=== PATIENT | male | born 1975 | race Hispanic/Latino ===

== ENCOUNTER 2017-05-03 10:52 | Emergency (ER) | payer BC, OTHER ==
[2017-05-03 10:58] VITALS: TEMP 98.2
[2017-05-03] MEDS ORDERED: Morphine 4 mg/ml ISec IVP STA (11:04)
--- NOTE | 2017-05-03 11:10 | ED PDOC ---
Arrival/HPI - General Chief Complaint: Male Genitourinary Time Seen by Provider: 05/03/17 10:53 Historian: Patient - History of Present Illness Narrative History of Present Illness (Text): 05/03/17 10:53 Aayush Melchor is a 42 year old male, whose past medical history includes testicular torsion, who presents to the emergency department complaining of right testicular pain that started 40 minutes ago. Patient confirms that there are no inciting factors. Patient denies any other complaint at this time. Time/Duration: 1/2 hour Symptom Onset: Gradual Symptom Course: Unchanged Severity Level: Moderate Activities at Onset: Rest Context: Home Past Medical History - Provider Review Nursing Documentation Reviewed: Yes - Cardiac Hx Hypertension: Yes - Pulmonary Hx Asthma: Yes - Neurological Hx Neurological Disorder: No - HEENT Hx HEENT Disorder: No - Renal Hx Renal Disorder: No - Endocrine/Metabolic Hx Endocrine Disorders: No - Hematological/Oncological Hx Blood Disorders: No - Integumentary Hx Dermatological Disorder: No - Musculoskeletal/Rheumatological Hx Musculoskeletal Disorders: No - Gastrointestinal Hx Gastrointestinal Disorders: No - Genitourinary/Gynecological Hx Genitourinary Disorders: Yes - Psychiatric Hx Anxiety: Yes Hx Substance Use: No - Surgical History Other/Comment: EPIDURAL R/T BACK PAIN, TESTICULAR R/T TORSION - Anesthesia Hx Anesthesia: No Family/Social History - Physician Review Nursing Documentation Reviewed: Yes Family/Social History: No Known Family HX Smoking Status: Heavy Smoker > 10 Cigarettes Daily Hx Alcohol Use: Yes Frequency of alcohol use: Socially Hx Substance Use: No Allergies/Home Meds Allergies/Adverse Reactions: Allergies No Known Allergies Allergy (Verified 05/03/17 10:54) Home Medications: Home Meds Medication Instructions Recorded Confirmed Escitalopram [Lexapro] 20 mg PO DAILY 05/03/17 05/03/17 Valsartan/Hydrochlorothiazide 1 tab PO DAILY 05/03/17 05/03/17 [Diovan Hct 320-25 mg Tablet] amLODIPine [Norvasc] 5 mg PO DAILY 05/03/17 05/03/17 Review of Systems - Review of Systems Constitutional: absent: Fevers, Night Sweats Eyes: absent: Vision Changes ENT: absent: Hearing Changes Respiratory: absent: SOB, Cough Cardiovascular: absent: Chest Pain Gastrointestinal: absent: Abdominal Pain Genitourinary Male: Other (Right testicular pain) Musculoskeletal: absent: Arthralgias Skin: absent: Rash Neurological: absent: Headache, Dizziness Endocrine: absent: Diaphoresis Hemo/Lymphatic: absent: Adenopathy Psychiatric: absent: Anxiety Physical Exam Vital Signs Reviewed: Yes Vital Signs Temp Pulse Resp BP Pulse Ox 05/03/17 13:00 89 18 128/69 100 05/03/17 11:50 91 H 18 131/71 100 05/03/17 10:55 98.2 F 99 H 16 133/76 95 Temperature: Afebrile Blood Pressure: Normal Pulse: Tachycardic Respiratory Rate: Normal Appearance: Positive for: Well-Appearing, Non-Toxic, Comfortable Pain Distress: None Mental Status: Positive for: Alert and Oriented X 3 - Systems Exam Head: Present: Atraumatic, Normocephalic Pupils: Present: PERRL Extroacular Muscles: Present: EOMI Conjunctiva: Present: Normal Mouth: Present: Moist Mucous Membranes Neck: Present: Normal Range of Motion Respiratory/Chest: Present: Clear to Auscultation, Good Air Exchange. No: Respiratory Distress, Accessory Muscle Use Cardiovascular: Present: Regular Rate and Rhythm, Normal S1, S2. No: Murmurs Abdomen: Present: Normal Bowel Sounds. No: Tenderness, Distention, Peritoneal Signs Genitourinary Male: Present: Testicle Tenderness (Right-sided testicular tenderness) Back: Present: Normal Inspection Upper Extremity: Present: Normal Inspection. No: Cyanosis, Edema Lower Extremity: Present: Normal Inspection. No: Edema Neurological: Present: GCS=15, CN II-XII Intact, Speech Normal Skin: Present: Warm, Dry, Normal Color. No: Rashes Psychiatric: Present: Alert, Oriented x 3, Normal Insight, Normal Concentration Medical Decision Making ED Course and Treatment: 05/03/17 10:55 Impression: 42 year old male complaining of right testicular pain that began 40 minutes ago. Differential Diagnosis include but are not limited to: Plan: -- Testes Ultrasound -- Urinalysis -- Labs -- Morphine -- Reassess and disposition Progress Notes: 05/03/17 13:58 tech reports b/l hydrocele. no e/o of torsion/epididymitits. case discussed with dr murphy (as pt called dr murphy on cell phone). reports can f/u friday with his group/. 05/03/17 16:12 - Lab Interpretations Lab Results: 05/03/17 11:00 05/03/17 11:00 Lab Results 05/03/17 12:30: Urine Color Yellow, Urine Appearance Clear, Urine pH 6.0, Ur Specific [place] >= 1.030, Urine Protein Negative, Urine Glucose (UA) Negative, Urine Ketones Negative, Urine Blood Negative, Urine Nitrate Negative, Urine Bilirubin Negative, Urine Urobilinogen 0.2, Ur Leukocyte Esterase Negative 05/03/17 11:00: Sodium 139, Potassium 3.6, Chloride 103, Carbon Dioxide 27, Anion Gap 13, BUN 17, Creatinine 0.8, Est GFR ( Amer) > 60, Est GFR (Non- Af Amer) > 60, Random Glucose 109, Calcium 9.5, Total Bilirubin 0.6, AST 26, ALT 43, Alkaline Phosphatase 81, Total Protein 7.5, Albumin 4.2, Globulin 3.3, Albumin/Globulin Ratio 1.3 05/03/17 11:00: PT 10.4, INR 0.96, APTT 26.7 05/03/17 11:00: WBC 9.7, RBC 5.55, Hgb 17.6, Hct 49.3, MCV 88.8, MCH 31.7, MCHC 35.7, RDW 13.2, Plt Count 192, MPV 11.0, Gran % 58.7, Lymph % (Auto) 28.7, [place] % (Auto) 7.8 H, Eos % (Auto) 4.6, Baso % (Auto) 0.2, Gran # 5.68, Lymph # 2.8, [place] # 0.8 H, Eos # 0.5, Baso # 0.02 I have reviewed the lab results: Yes - RAD Interpretation Radiology Orders: 05/03/17 11:04 TESTES DUPLEX COMPLETE [US] Stat - Medication Orders Current Medication Orders: Discontinued Medications Hydromorphone HCl (Dilaudid) 0.5 mg IVP STAT STA Stop: 05/03/17 12:09 Last Admin: 05/03/17 12:18 Dose: 0.5 mg Sodium Chloride (Sodium Chloride 0.9%) 1,000 mls @ 999 mls/hr IV .Q1H1M STA Stop: 05/03/17 13:15 Last Admin: 05/03/17 12:19 Dose: 999 mls/hr Ketorolac Tromethamine (Toradol) 30 mg IVP STAT STA Stop: 05/03/17 13:57 Last Admin: 05/03/17 14:11 Dose: 30 mg Morphine Sulfate (Morphine) 4 mg IVP STAT STA Stop: 05/03/17 11:05 Last Admin: 05/03/17 11:18 Dose: 4 mg - Scribe Statement The provider has reviewed the documentation as recorded by the Scribe Ana Jha Provider Scribe Attestation: All medical record entries made by the Scribe were at my direction and personally dictated by me. I have reviewed the chart and agree that the record accurately reflects my personal performance of the history, physical exam, medical decision making, and the department course for this patient. I have also personally directed, reviewed, and agree with the discharge instructions and disposition. Disposition/Present on Arrival - Present on Arrival Any Indicators Present on Arrival: No History of DVT/PE: No History of Uncontrolled Diabetes: No Urinary Catheter: No History of Decub. Ulcer: No History Surgical Site Infection Following: None - Disposition Have Diagnosis and Disposition been Completed?: Yes Diagnosis: Testicular pain, Hydrocele Disposition: HOME/ ROUTINE Disposition Time: 12:55 Condition: STABLE Discharge Instructions (ExitCare): Hydrocele (ED), Testicle Pain (ED) Additional Instructions: please follow up with specialist. return toer with worsening symptoms or concerns. Prescriptions: Ciprofloxacin [Cipro] 500 mg PO BID #14 tab Ibuprofen [Motrin Tab] 600 mg PO Q8 PRN #20 tab PRN Reason: Pain, Mild (1-3) Referrals: Mary Kate Lake [Primary Care Provider] - Follow up with primary Kennedy Murphy MD [Staff Provider] - Follow up with primary
[2017-05-03 11:26] LABS: ADD MANUAL DIFF? NO
[2017-05-03 11:36] LABS: BASO # 0.02 K/mm3 (0.0-2.0); BASO % 0.2 % (0.0-3.0); EOS # 0.5 (0.0-0.7); EOS % 4.6 % (1.5-5.0); GRAN # 5.68 (1.4-6.5); GRAN % 58.7 % (50.0-68.0); HEMATOCRIT 49.3 % (42.0-52.0); LYMPH # 2.8 (1.2-3.4); LYMPH % 28.7 % (22.0-35.0); MEAN CELL VOLUME 88.8 fL (80.0-105.0); MEAN CORPUSCULAR HEMOGLOBIN 31.7 pg (25.0-35.0); MEAN CORPUSCULAR HGB CONC 35.7 g/dl (31.0-37.0); MONO # 0.8 (0.1-0.6); MONO % 7.8 % (1.0-6.0); PLATELET COUNT 192 10^3/uL (120.0-450.0); RED CELL DISTRIBUTION WIDTH 13.2 % (11.5-14.5); WHITE BLOOD COUNT 9.7 10^3/ul (4.5-11.0)
[2017-05-03 11:40] LABS: ALB/GLOB RATIO 1.3 (1.1-1.8); ALKALINE PHOSPHATASE 81 U/L (38-133); ALT/SGPT 43 U/L (7-56); AST/SGOT 26 U/L (15-59); BILIRUBIN,TOTAL 0.6 mg/dL (0.2-1.3); BLOOD UREA NITROGEN 17 mg/dL (7-21); CALCIUM 9.5 mg/dL (8.4-10.5); CARBON DIOXIDE 27 mmol/L (21-33); CHLORIDE 103 mmol/L (98-107); GFR AFRICAN-AMERICAN > 60; GLUCOSE,RANDOM 109 mg/dL (70-110); POTASSIUM 3.6 mmol/L (3.6-5.0); SODIUM 139 mmol/L (132-148); TOTAL PROTEIN 7.5 g/dL (5.8-8.3)
[2017-05-03 11:42] LABS: INR 0.96 (0.93-1.08); PARTIAL THROMBOPLASTIN TIME 26.7 Seconds (23.7-30.8)
[2017-05-03 11:51] VITALS: RESP 18; O2SAT 100
[2017-05-03] MEDS ORDERED: HYDROmorphone 0.5 mg/0.5 ml ISec IVP STA (12:08)
[2017-05-03] MEDS ORDERED: Sodium Chloride 0.9% 1,000 ML IV STA (12:15)
[2017-05-03 12:48] LABS: URINE BILIRUBIN NEGATIVE (NEGATIVE); URINE BLOOD NEGATIVE (NEGATIVE); URINE GLUCOSE (UA) NEGATIVE (NEGATIVE); URINE KETONE NEGATIVE (NEGATIVE); URINE LEUKOCYTE ESTERASE NEGATIVE Leu/uL (NEGATIVE); URINE PROTEIN NEGATIVE mg/dL (<30 mg/dL); URINE UROBILINOGEN 0.2 E.U./dL (<1 E.U./dL)
[2017-05-03 12:49] LABS: URINE APPEARANCE CLEAR (CLEAR); URINE COLOR YELLOW (YELLOW)
[2017-05-03 13:12] VITALS: BP 128/69; PULSE 89
--- NOTE | 2017-05-03 16:36 | US ---
HISTORY: testicular pain TECHNIQUE: Realtime sonography through the scrotum with color and doppler flow. COMPARISON: None Available. FINDINGS: RIGHT TESTICLE: Measures 4.69 x 2.83 x 2.85 cm. Normal echotexture and flow. RIGHT EPIDIDYMIS: Epididymal head measures 1.54 x 0.96 x 1.0 cm. Grossly unremarkable appearance with normal flow. LEFT TESTICLE: Measures 4.55 x 2.02 cm. Normal echotexture and flow. LEFT EPIDIDYMIS: Epididymal head measures 1.17 x 0.76 cm. Grossly unremarkable appearance with normal flow. HYDROCELE: Small hydroceles bilaterally VARICOCELE: None. OTHER FINDINGS: None. IMPRESSION: No evidence of torsion
== END 2017-05-03 14:25 | disposition home or self-care (01) ==
LOC: ED 10:52
DX: N43.3 Hydrocele, unspecified (principal); N50.811 Right testicular pain
CPT/HCPCS: 80053; 81003; 85025; 85610; 85730; 87491; 87591; 93975; 96361; 96374; 96375; 99282; J1170; J1885; J2270; J7040

== ENCOUNTER 2018-04-29 03:27 | Emergency (ER) | payer OTHER, BC ==
[2018-04-29 03:35] VITALS: BMI 34.4
[2018-04-29 03:41] VITALS: TEMP 97.1
--- NOTE | 2018-04-29 04:31 | ED PDOC ---
Arrival/HPI - General Chief Complaint: Back Pain Time Seen by Provider: 04/29/18 03:41 Historian: Patient - History of Present Illness Narrative History of Present Illness (Text): 04/29/18 03:40 Aayush Melchor Jr is a 43 year old male who presents to the Emergency department complaining of back pain. Patient works as a patient support associate and was working at a [employer] prior to arrival. Patient states he was wearing full protective gear including a heavy oxygen gas tank. Patient denies any chest pain , shortness of breath, abdominal pain, vomiting, neck pain, headache, dizziness , or any other complaints. Time/Duration: Prior to Arrival Symptom Onset: Gradual Symptom Course: Unchanged Activities at Onset: Significant (Exertion) Context: Work Past Medical History - Provider Review Nursing Documentation Reviewed: Yes - Cardiac Hx Hypertension: Yes - Pulmonary Hx Asthma: Yes - Neurological Hx Neurological Disorder: No - HEENT Hx HEENT Disorder: No - Renal Hx Renal Disorder: No - Endocrine/Metabolic Hx Endocrine Disorders: No - Hematological/Oncological Hx Blood Disorders: No - Integumentary Hx Dermatological Disorder: No - Musculoskeletal/Rheumatological Hx Musculoskeletal Disorders: No Other/Comment: neck and back fusion - Gastrointestinal Hx Gastrointestinal Disorders: No - Genitourinary/Gynecological Hx Genitourinary Disorders: Yes - Psychiatric Hx Anxiety: Yes Hx Substance Use: No - Surgical History Other/Comment: EPIDURAL R/T BACK PAIN, TESTICULAR R/T TORSION - Anesthesia Hx Anesthesia: No Family/Social History - Physician Review Nursing Documentation Reviewed: Yes Family/Social History: Unknown Family HX Smoking Status: Heavy Smoker > 10 Cigarettes Daily Hx Alcohol Use: Yes Hx Substance Use: No Allergies/Home Meds Allergies/Adverse Reactions: Allergies No Known Allergies Allergy (Verified 05/03/17 10:54) Home Medications: Home Meds Medication Instructions Recorded Confirmed Escitalopram [Lexapro] 20 mg PO DAILY 05/03/17 05/03/17 Valsartan/Hydrochlorothiazide 1 tab PO DAILY 05/03/17 05/03/17 [Diovan Hct 320-25 mg Tablet] amLODIPine [Norvasc] 5 mg PO DAILY 05/03/17 05/03/17 Review of Systems - Physician Review All systems were reviewed & negative as marked: Yes - Review of Systems Constitutional: Normal. absent: Fevers Eyes: Normal ENT: Normal Respiratory: Normal. absent: SOB, Cough Cardiovascular: Normal. absent: Chest Pain Gastrointestinal: Normal. absent: Abdominal Pain, Diarrhea, Nausea, Vomiting Genitourinary Male: Normal. absent: Dysuria, Frequency, Hematuria, Urinary Output Changes Musculoskeletal: Back Pain. absent: Neck Pain Skin: Normal Neurological: Normal Endocrine: Normal Hemo/Lymphatic: Normal Psychiatric: Normal Physical Exam Vital Signs Reviewed: Yes Vital Signs Temp Pulse Resp BP Pulse Ox 04/29/18 05:10 98 H 18 128/79 100 04/29/18 03:40 97.1 F L 103 H 20 133/94 H 97 Temperature: Afebrile Blood Pressure: Normal Pulse: Regular Respiratory Rate: Normal Appearance: Positive for: Well-Appearing, Non-Toxic, Comfortable Pain Distress: None Mental Status: Positive for: Alert and Oriented X 3 - Systems Exam Head: Present: Atraumatic, Normocephalic Pupils: Present: PERRL Extroacular Muscles: Present: EOMI Conjunctiva: Present: Normal Mouth: Present: Moist Mucous Membranes Neck: Present: Normal Range of Motion Respiratory/Chest: Present: Clear to Auscultation, Good Air Exchange. No: Respiratory Distress, Accessory Muscle Use Cardiovascular: Present: Regular Rate and Rhythm, Normal S1, S2. No: Murmurs Abdomen: No: Tenderness, Distention, Peritoneal Signs Back: Present: Paraspinal Tenderness (Thoracic paravertebral tenderness) Upper Extremity: Present: Normal Inspection. No: Cyanosis, Edema Lower Extremity: Present: Normal Inspection. No: Edema Neurological: Present: GCS=15, CN II-XII Intact, Speech Normal Skin: Present: Warm, Dry, Normal Color. No: Rashes Psychiatric: Present: Alert, Oriented x 3, Normal Insight, Normal Concentration Medical Decision Making ED Course and Treatment: 04/29/18 03:40 Impression: 43 year old male brought in for upper back pain while working tonight. Differential Diagnosis included but are not limited to: strain vs. musculoskeletal pain Plan: -- Toradol -- Reassess and disposition Progress Notes: 04/29/18 05:10 On re-evaluation, patient feels better and is in no acute distress. Patient in agreement with plan to be discharged home. Patient is stable for discharge. Patient was instructed to follow up with physician or return if symptoms worsen or new concerning symptoms arise. - Medication Orders Current Medication Orders: Discontinued Medications Ketorolac Tromethamine (Toradol) 30 mg IM ONCE ONE Stop: 04/29/18 03:43 Last Admin: 04/29/18 04:00 Dose: 30 mg MAR Pain Assessment Document 04/29/18 04:00 AD (Rec: 04/29/18 04:01 AD [id number]) Pain Reassessment Is this a pain reassessment? No Presence of Pain Presence of Pain Yes Pain Scale Used Pain Scale Used Numeric Description Intensity of Pain at present 8 Pain Behavior Facial Grimacing IM Administration Charges Document 04/29/18 04:00 AD (Rec: 04/29/18 04:01 AD [id number]) Injection Site MAR Injection Site Right Deltoid Charges for Administration # of IM Administrations 1 - Scribe Statement The provider has reviewed the documentation as recorded by the Vidaibtony Ralph Provider Scribe Attestation: All medical record entries made by the Scribe were at my direction and personally dictated by me. I have reviewed the chart and agree that the record accurately reflects my personal performance of the history, physical exam, medical decision making, and the department course for this patient. I have also personally directed, reviewed, and agree with the discharge instructions and disposition. Disposition/Present on Arrival - Present on Arrival Any Indicators Present on Arrival: No History of DVT/PE: No History of Uncontrolled Diabetes: No Urinary Catheter: No History of Decub. Ulcer: No History Surgical Site Infection Following: None - Disposition Have Diagnosis and Disposition been Completed?: Yes Diagnosis: Back pain Disposition: HOME/ ROUTINE Disposition Time: 05:15 Condition: GOOD Discharge Instructions (ExitCare): Upper Back Pain Referrals: FAMILY PROVIDER,NO [Primary Care Provider] - Follow up with primary Forms: Muut (Chinese)
[2018-04-29 06:22] VITALS: BP 128/79; PULSE 98; RESP 18; O2SAT 100
== END 2018-04-29 05:10 | disposition home or self-care (01) ==
LOC: ED 03:27
DX: M54.6 Pain in thoracic spine (principal)
CPT/HCPCS: 96372; 99282; J1885